=== PATIENT | female | born 1990 | race Caucasian/White ===

== ENCOUNTER 2016-06-07 23:27 | Emergency (ER) | payer OTHER | END 2016-06-08 02:25 | disposition home or self-care (01) | LOC: ER 23:27 | DX: J45.901 Unspecified asthma with (acute) exacerbation (principal); F32.9 Major depressive disorder, single episode, unspecified; F41.9 Anxiety disorder, unspecified; K21.9 Gastro-esophageal reflux disease without esophagitis; G43.909 Migraine, unspecified, not intractable, without status migrainosus; F17.210 Nicotine dependence, cigarettes, uncomplicated | CPT/HCPCS: 87502; 94640 ==

== ENCOUNTER 2016-07-24 20:37 | Emergency (ER) | payer OTHER | END 2016-07-24 21:55 | disposition home or self-care (01) | LOC: ER 20:37 | DX: G43.109 Migraine with aura, not intractable, without status migrainosus (principal); F32.9 Major depressive disorder, single episode, unspecified; F41.9 Anxiety disorder, unspecified; K21.9 Gastro-esophageal reflux disease without esophagitis | CPT/HCPCS: 96374; 96375; J1200; J1885; J2765 ==

== ENCOUNTER 2016-09-06 20:49 | Emergency (ER) | payer OTHER | END 2016-09-07 00:57 | disposition home or self-care (01) | LOC: ER 20:49 | DX: G43.909 Migraine, unspecified, not intractable, without status migrainosus (principal); J45.909 Unspecified asthma, uncomplicated; F41.9 Anxiety disorder, unspecified; F32.9 Major depressive disorder, single episode, unspecified; F17.210 Nicotine dependence, cigarettes, uncomplicated | CPT/HCPCS: 96361; 96374; 96375; J1885; J2765 ==